=== PATIENT | female | born 1985 | race Caucasian/White ===

== ENCOUNTER 2023-04-07 08:13 | Inpatient (IN) ==
[2023-04-07] MEDS ORDERED: Lactated Ringers 1000 ml BAG 1,000 ML IV ONE (09:22)
[2023-04-07] MEDS ORDERED: Lidocaine 1% VIAL 10 MG/ML 30 ML VIAL INJ PRN (09:22)
[2023-04-07] MEDS ORDERED: Buffered Lidocaine 1% SYRIN 1 ml INTRADERM ONE (09:22)
[2023-04-07] MEDS ORDERED: Lactated Ringers 1000 ml BAG 1,000 ML IV SCH (10:00)
[2023-04-07] MEDS ORDERED: miSOPROStol 100 mcg TAB VAGINAL ONE ×2 (10:28→15:30)
[2023-04-07 11:58] LABS: Urine Benzodiazepine Screen None Detected (None Detect); Urine Cannabinoids Screen None Detected (None Detect); Urine Opiates Screen None Detected (None Detect)
[2023-04-07] MEDS ORDERED: Dinoprostone 10 MG VAG.SUPP VAGINAL ONE (19:47)
[2023-04-08] MEDS ORDERED: Lidocaine 2% JELLY 6 ML Topical TOPICAL ONE (08:24)
[2023-04-08 17:03] LABS: ABS Monocytes 0.6 10^3/uL (0.0-0.9); ABS Neutrophils 10.4 10^3/uL (1.5-7.6); ABS Nucleated RBC 0.01 10^3/ul; Eosinophil % 0.1 %; Hematocrit 35.7 % (35-45); Hemoglobin 12.5 g/dL (11.5-14.3); Lymphocyte % 8.7 %; Mean Corpuscular Hgb Conc 34.9 g/dL (31-36); Mean Corpuscular Volume 91.7 fL (80-97); Mean Platelet Volume 10.2 fL (7.5-11.2); Nucleated Red Blood Cells % 0.1 %/100WBC (0.0-0.8); Platelet Count 212 10^3/uL (150-450); Red Cell Distribution Width 14.4 % (12-17)
[2023-04-08] MEDS ORDERED: Ondansetron 4 mg VIAL 2 MG/ML 2 ml VIAL IV PRN (17:35)
[2023-04-08] MEDS ORDERED: fentaNYL 100 mcg/2 ml 50 MCG/ML VIAL ONE (19:34)
[2023-04-08] MEDS ORDERED: Sodium Citrate/Citric Acid LIQ 15 ML UDC PO PRN (19:39)
[2023-04-08] MEDS ORDERED: Phenylephrine 40 mcg/mL 10mL (400mcg) SYRINGE IV PUSH PRN ×2 (19:39)
[2023-04-08] MEDS ORDERED: Lactated Ringers 1000 ml BAG 1,000 ML IV ONE (19:39)
[2023-04-08] MEDS ORDERED: Lidocaine 1.5% EPI 1:200,000 30 ML SDV ONE (19:45)
[2023-04-08] MEDS ORDERED: OBEPIDURAL (200 ML) 200 ML EPIDURAL ONE (19:46)
[2023-04-08] MEDS ORDERED: OBEPIDURAL (200 ML) 200 ML EPIDURAL SCH (20:00)
[2023-04-08 21:24] LABS: Urine Appearance Clear; Urine Bilirubin Negative (Negative); Urine Blood Negative (Negative); Urine Color Straw; Urine Glucose Negative (Negative); Urine Ketones Trace (Negative); Urine Nitrite Negative (Negative); Urine Protein Negative (Negative); Urine Specific Gravity 1.005 (1.002-1.030); Urine Urobilinogen Negative (Negative)
[2023-04-08] MEDS ORDERED: Oxytocin in LR 20,000 MILLI.UNIT/1,000 ML BAG IV SCH (21:55)
[2023-04-09] MEDS ORDERED: fentaNYL 100 mcg/2 ml 50 MCG/ML VIAL ONE (02:01)
[2023-04-09] MEDS ORDERED: Bupivacaine 0.25% w/EPI 10 ML SDV ONE (02:01)
[2023-04-09] MEDS: Lactated Ringers 1000 ml BAG 1,000 ML IV SCH ×2 (02:05→09:38)
[2023-04-09] MEDS ORDERED: Lidocaine 1.5% EPI 1:200,000 30 ML SDV ONE (07:01)
[2023-04-09] MEDS ORDERED: ceFOXitin 2 GM IVPREMIX 2 GM/50 ML BAG IVPB ONE ×3 (11:54→20:30)
[2023-04-09] MEDS ORDERED: RHO D Immune Globulin (HUMAN) 300 MCG = 1,500 I.U. INJ IM PRN (11:57)
[2023-04-09] MEDS ORDERED: Glycerin ADULT 2.4 gm SUPP PR PRN (11:57)
[2023-04-09] MEDS ORDERED: Lactated Ringers 1000 ml BAG 1,000 ML IV SCH (12:00)
[2023-04-09] MEDS ORDERED: Oxytocin in LR 20,000 MILLI.UNIT/1,000 ML BAG IV SCH (12:00)
[2023-04-09] MEDS: Witch Hazel PAD JAR TOPICAL PRN (13:05)
[2023-04-09] MEDS: Dibucaine 1% OINT 28.35 GM TUBE PR PRN (13:05)
[2023-04-10 08:01] LABS: ABS Eosinophils 0.1 10^3/uL (0.0-0.5); ABS Lymphocytes 1.5 10^3/uL (1.0-4.8); ABS Monocytes 0.8 10^3/uL (0.0-0.9); ABS Neutrophils 9.7 10^3/uL (1.5-7.6); ABS Nucleated RBC 0.01 10^3/ul; Eosinophil % 0.7 %; Hematocrit 26.2 % (35-45); Hemoglobin 9.2 g/dL (11.5-14.3); Lymphocyte % 12.5 %; Mean Corpuscular Hemoglobin 32.7 pg (27-33); Mean Corpuscular Hgb Conc 34.9 g/dL (31-36); Mean Corpuscular Volume 93.6 fL (80-97); Mean Platelet Volume 9.5 fL (7.5-11.2); Platelet Count 165 10^3/uL (150-450); Red Cell Distribution Width 14.5 % (12-17); White Blood Count 12.2 10^3/uL (3.8-11.8)
[2023-04-10] MEDS: Dibucaine 1% OINT 28.35 GM TUBE PR PRN (13:44)
[2023-04-10] MEDS: Witch Hazel PAD JAR TOPICAL PRN (19:09)
[2023-04-11 09:26] VITALS: BP 132/66
== END 2023-04-11 12:25 | disposition home or self-care (01) | DRG 541 ==
LOC: MCHOBOUT 08:13 → MCHOB 09:27
PROVIDERS: ADMIT Midwife; ATTEND Midwife